=== PATIENT | male | born 1965 | race Caucasian/White ===

== ENCOUNTER 2018-03-23 01:50 | Emergency (ER) | END 2018-03-23 03:15 | disposition home or self-care (01) ==

== ENCOUNTER 2018-11-11 20:46 | Emergency (ER) | payer SELFPAY ==
[~2018-11-11] VITALS: Ht 188 cm; Wt 76.0 kg
[2018-11-11 20:58] VITALS: BP 139/62; PULSE 118; RESP 20; Ht 188 cm; Wt 76.0 kg
[2018-11-12] MEDS ORDERED: ESCI10TA PO (08:39)
[2018-11-12] MEDS ORDERED: CLON0.5T14 PO (08:39)
[2018-11-12] MEDS ORDERED: FURO40TA4 PO (08:39)
[2018-11-12] MEDS ORDERED: SPIR100T4 PO (08:39)
[2018-11-12] MEDS ORDERED: VALA500T PO (08:40)
== END 2018-11-11 21:23 | disposition left against medical advice (07) ==
LOC: E/R 20:46
DX: Z53.21 Procedure and treatment not carried out due to patient leaving prior to being seen by health care provider (principal)

== ENCOUNTER 2018-11-12 07:50 | Emergency (ER) | payer OTHER ==
[~2018-11-12] VITALS: Ht 182.9 cm; Wt 75.0 kg
[2018-11-12 07:53] VITALS: Ht 182.9 cm; Wt 75.0 kg
[2018-11-12] MEDS ORDERED: SPIR100T4 PO (08:39)
[2018-11-12] MEDS ORDERED: CLON0.5T14 PO (08:39)
[2018-11-12] MEDS ORDERED: ESCI10TA PO (08:39)
[2018-11-12] MEDS ORDERED: FURO40TA4 PO (08:39)
[2018-11-12] MEDS ORDERED: VALA500T PO (08:40)
[2018-11-12] MEDS ORDERED: LIDOCAINE 1% (MPF) 5 ML VIAL ONE (09:29)
--- NOTE | 2018-11-12 10:18 | ERD ---
ER Documentation Chief Complaint Chief Complaint here for paracenthesis HPI Patient is a 53-year-old male with a history of lymphoma who came for paracentesis. He said that he has had ascites for a few months now and is never had a paracentesis. He has no fevers. He has had discomfort in the abdomen from the swelling as well as feeling like he cannot take a deep breath. He does have a primary doctor and oncologist at [facility] and has an appointment scheduled with the oncologist for November 19. ROS All systems reviewed and are negative except as per history of present illness. Medications Home Meds Reported Medications valAcyclovir Hcl* (valACYclovir Hcl*) 500 Mg Tablet, 500 MG PO DAILY, TAB 11/12/18 Spironolactone* (Spironolactone*) 100 Mg Tablet, 100 MG PO DAILY, TAB 11/12/18 Furosemide* (Furosemide*) 40 Mg Tablet, 40 MG PO DAILY, TAB 11/12/18 Escitalopram Oxalate* (Lexapro*) 10 Mg Tablet, 10 MG PO DAILY, #30 TAB 11/12/18 Clonazepam* (Clonazepam*) 0.5 Mg Tablet, 0.5 MG PO QHS PRN for ANXIETY, TAB 11/12/18 Allergies Allergies: Coded Allergies: No Known Drug Allergies (Verified Allergy, Unknown, 11/12/18) PMhx/Soc Hx Psychiatric Problems: Yes (DEPRESSION) Hx Miscellaneous Medical Probl: Yes (LYMPHOMA) Hx Alcohol Use: Yes (occasional) Hx Substance Use: Yes (cystal meth.) Hx Tobacco Use: No Smoking Status: Former smoker FmHx Family History: diabetes Physical Exam Vitals Vital Signs Date Temp Pulse Resp B/P (MAP) Pulse Ox O2 O2 Flow FiO2 Time Delivery Rate 11/12/18 98.1 90 18 132/90 99 07:53 (104) Physical Exam Const: Cachexia Head: Atraumatic Eyes: Normal Conjunctiva ENT: Normal External Ears, Nose and Mouth. Neck: Full range of motion. No meningismus. Resp: Clear to auscultation bilaterally Cardio: Regular rate and rhythm, no murmurs Abd: Distended abdomen with positive fluid wave Skin: No petechiae or rashes Back: No midline or flank tenderness Ext: No cyanosis, or edema Neur: Awake and alert Psych: Normal Mood and Affect Result Diagram: 7/9/19 0822 7/9/19 0822 Results 24 hrs Laboratory Tests Test 11/12/18 08:22 White Blood Count 9.4 10^3/ul Red Blood Count 3.60 10^6/ul Hemoglobin 10.5 g/dl Hematocrit 32.9 % Mean Corpuscular Volume 91.4 fl Mean Corpuscular Hemoglobin 29.2 pg Mean Corpuscular Hemoglobin Concent 31.9 g/dl Red Cell Distribution Width 14.4 % Platelet Count 300 10^3/UL Mean Platelet Volume 8.5 fl Immature Granulocytes % 0.200 % Neutrophils % 26.1 % Segmented Neutrophils % (Manual) 37 % Band Neutrophils % (Manual) 2 % Lymphocytes % 67.1 % Lymphocytes % (Manual) 44 % Reactive Lymphocytes % (Manual) 1 % Monocytes % 4.9 % Monocytes % (Manual) 5 % Eosinophils % 1.2 % Basophils % 0.5 % Blast Cells % (Manual) 11.0 % Nucleated Red Blood Cells % 0.0 /100WBC Immature Granulocytes # 0.020 10^3/ul Neutrophils # 2.5 10^3/ul Neutrophils # (Manual) 3.5 10^3/ul Band Neutrophils # 0.1 10^3/ul Lymphocytes (Manual) 4.1 10^3/ul Lymphocytes # 6.3 10^3/ul Reactive Lymphocytes # 0.0 10^3/ul Monocytes # 0.5 10^3/ul Monocytes # (Manual) 0.4 10^3/ul Eosinophils # 0.1 10^3/ul Basophils # 0.1 10^3/ul Nucleated Red Blood Cells # 0.0 10^3/ul White Cell Morphology Comment @See below Platelet Estimate NORMAL Anisocytosis 1+ Red Cell Morphology Comment @See below Prothrombin Time 13.6 Sec Prothrombin Time Ratio 1.1 INR International Normalized Ratio 1.03 Activated Partial Thromboplast Time 31.0 Sec Sodium Level 142 mmol/L Potassium Level 4.7 mmol/L Chloride Level 103 mmol/L Carbon Dioxide Level 31 mmol/L Anion Gap 8 Blood Urea Nitrogen 30 mg/dl Creatinine 1.02 mg/dl Est Glomerular Filtrat Rate mL/min > 60 mL/min Glucose Level 103 mg/dl Calcium Level 9.1 mg/dl Total Bilirubin 0.4 mg/dl Direct Bilirubin 0.00 mg/dl Indirect Bilirubin 0.4 mg/dl Aspartate Amino Transf (AST/SGOT) 44 IU/L Alanine Aminotransferase (ALT/SGPT) 27 IU/L Alkaline Phosphatase 137 IU/L Total Protein 7.9 g/dl Albumin 4.0 g/dl Globulin 3.90 g/dl Albumin/Globulin Ratio 1.02 Current Medications Medications Dose Sig/Jl Start Time Status Last (Trade) Ordered Route PRN Stop Time Admin Dose Reason Admin Lidocaine 5 ml STK-MED 11/12/18 DC 11/12/18 (Xylocaine ONCE .ROUTE 09:29 11/12/18 09:30 1% (Mpf)) 09:30 Procedures/MDM Ultrasound-guided paracentesis performed by radiology. Patient is a 53-year-old male who presents with acute ascites. The studies is likely from the lymphoma that he has. The patient will have ultrasound-guided paracentesis performed by radiology. I doubt spontaneous bacterial peritonitis. General screening laboratory studies were basically normal. The patient will be discharged and was encouraged to keep his appointment scheduled with oncology on November 19 at [facility]. Departure Diagnosis: Primary Impression: Ascites Ascites type: other type Qualified Codes: R18.8 - Other ascites Additional Impression: Lymphoma Lymphoma type: unspecified type Lymphoma site: unspecified region Qualified Codes: C85.90 - Non-Hodgkin lymphoma, unspecified, unspecified site Condition: Fair Patient Instructions: Ascites Referrals: Your doctor at [facility] Additional Instructions: Call your primary care doctor TOMORROW for an appointment during the next [address] [place].Tell the principal secretary that you were referred from this facility.See the doctor sooner or return here if your condition worsens before your appointment time. Keep the appointment on November 19 with the school fundraising director/oncologist. MARY CORNELL MD Nov 12, 2018 10:18
[2018-11-12 10:23] VITALS: BP 120/76; PULSE 96; RESP 17
== END 2018-11-12 10:24 | disposition home or self-care (01) ==
LOC: E/R 07:50
DX: R18.8 Other ascites (principal); C85.90 Non-Hodgkin lymphoma, unspecified, unspecified site; Z87.891 Personal history of nicotine dependence
CPT/HCPCS: 80053; 85025; 85610; 85730; Z7502; Z7610

== ENCOUNTER 2018-11-23 17:36 | Emergency (ER) | payer SELFPAY ==
[~2018-11-23] VITALS: Ht 177.8 cm; Wt 71.7 kg
[~2018-11-23 17:36] MED LIST: CLON0.5T14 PO; ESCI10TA PO; FURO40TA4 PO; SPIR100T4 PO; VALA500T PO
[2018-11-23 17:50] VITALS: BP 119/73; PULSE 89; RESP 14; Ht 177.8 cm; Wt 71.7 kg
== END 2018-11-23 18:23 | disposition left against medical advice (07) ==
LOC: E/R 17:36
DX: Z53.21 Procedure and treatment not carried out due to patient leaving prior to being seen by health care provider (principal)

== ENCOUNTER 2018-11-24 11:07 | Emergency (ER) | payer OTHER ==
[~2018-11-24] VITALS: Wt 72.0 kg
--- NOTE | 2018-11-24 12:46 | ERD ---
ER Documentation Chief Complaint Chief Complaint Pt. is here for paracentesis HPI This is a 53-year-old male with a history of lymphoma who presents for evaluation of therapeutic paracentesis. His last paracentesis performed here was on November 12, his ascites is secondary to malignancy. He denies fever, diarrhea or shortness of breath. ROS All systems reviewed and are negative except as per history of present illness. Medications Home Meds Reported Medications valAcyclovir Hcl* (valACYclovir Hcl*) 500 Mg Tablet, 500 MG PO DAILY, TAB 11/12/18 Spironolactone* (Spironolactone*) 100 Mg Tablet, 100 MG PO DAILY, TAB 11/12/18 Furosemide* (Furosemide*) 40 Mg Tablet, 40 MG PO DAILY, TAB 11/12/18 Escitalopram Oxalate* (Lexapro*) 10 Mg Tablet, 10 MG PO DAILY, #30 TAB 11/12/18 Clonazepam* (Clonazepam*) 0.5 Mg Tablet, 0.5 MG PO QHS PRN for ANXIETY, TAB 11/12/18 Allergies Allergies: Coded Allergies: No Known Drug Allergies (Verified Allergy, Unknown, 11/12/18) PMhx/Soc Hx Psychiatric Problems: Yes (DEPRESSION) Hx Miscellaneous Medical Probl: Yes (LYMPHOMA) Hx Alcohol Use: Yes (occasional) Hx Substance Use: Yes (cystal meth.) Hx Tobacco Use: No Smoking Status: Never smoker Physical Exam Vitals Vital Signs Date Temp Pulse Resp B/P (MAP) Pulse Ox O2 O2 Flow FiO2 Time Delivery Rate 11/24/18 97.3 92 20 111/79 97 11:29 (90) Physical Exam Const: Afebrile, thin appearing, no acute distress Head: Atraumatic Eyes: Normal conjunctiva ENT: Normal external ears, nose and mouth. Neck: Resp: Normal respiratory effort Cardio: Abd: Soft, distended, no rebound or guarding, no focal tenderness Skin: Back: Ext: Neur: Awake and alert Psych: Normal mood and affect Procedures/MDM 53-year-old male with a history of ascites secondary to malignancy presents for evaluation of possible paracentesis. Patient presents requesting a therapeutic paracentesis, he has no signs or symptoms of infection, at this time I do not suspect SBP. Will plan for paracentesis performed by radiology, if successful and patient tolerated well, anticipate likely discharge. Will sign out to oncoming physician. Departure Diagnosis: Primary Impression: Abdominal pain Abdominal location: unspecified location Qualified Codes: R10.9 - Unspecified abdominal pain Additional Impression: Ascites Ascites type: other type Qualified Codes: R18.8 - Other ascites Condition: Stable Patient Instructions: TYREE Arroyo MD Nov 24, 2018 12:46
[2018-11-24] MEDS ORDERED: LIDOCAINE 1% (MPF) 5 ML VIAL ONE (15:32)
[2018-11-24 15:45] VITALS: BP 101/65; PULSE 65; RESP 17
== END 2018-11-24 15:45 | disposition home or self-care (01) ==
LOC: E/R 11:07 → FTE 15:45
DX: R10.9 Unspecified abdominal pain (principal)
CPT/HCPCS: Z7502; Z7610

== ENCOUNTER 2018-11-30 14:19 | Emergency (ER) | payer OTHER ==
[~2018-11-30] VITALS: Ht 188 cm; Wt 72.9 kg
[~2018-11-30 14:19] MED LIST changes: +TEMA15CA6 PO
[2018-11-30 14:28] VITALS: Ht 188 cm; Wt 72.9 kg
--- NOTE | 2018-11-30 15:12 | ERD ---
ER Documentation Chief Complaint Chief Complaint here for paracentesis, abdominal pain and sob, last paracentesis sunday HPI Patient with history of lymphoma that has not been treated yet. This had a PET scan several days ago. Her patient has no liver involvement. Has had recurrent ascites and low volume pleural effusions causing shortness of breath and abdominal discomfort. Denies weakness fever diarrhea. Does endorse some mild difficulty with urination. No dysuria ROS All systems reviewed and are negative except as per history of present illness. Medications Home Meds Reported Medications Temazepam* (Restoril*) 15 Mg Capsule, 15 MG PO HS PRN for INSOMNIA, CAP 11/30/18 valAcyclovir Hcl* (valACYclovir Hcl*) 500 Mg Tablet, 500 MG PO DAILY, TAB 11/12/18 Escitalopram Oxalate* (Lexapro*) 10 Mg Tablet, 10 MG PO DAILY, #30 TAB 11/12/18 Discontinued Reported Medications Spironolactone* (Spironolactone*) 100 Mg Tablet, 100 MG PO DAILY, TAB 11/12/18 Furosemide* (Furosemide*) 40 Mg Tablet, 40 MG PO DAILY, TAB 11/12/18 Clonazepam* (Clonazepam*) 0.5 Mg Tablet, 0.5 MG PO QHS PRN for ANXIETY, TAB 11/12/18 Allergies Allergies: Coded Allergies: No Known Drug Allergies (Verified Allergy, Unknown, 11/30/18) PMhx/Soc Hx Psychiatric Problems: Yes (DEPRESSION) Hx Miscellaneous Medical Probl: Yes (LYMPHOMA, Cirrhosis/ascities) Hx Alcohol Use: Yes (occasional, pt currently denies use) Hx Substance Use: Yes (cystal meth. hx; pt currently denies use) Hx Tobacco Use: No Smoking Status: Unknown if ever smoked Physical Exam Vitals Vital Signs Date Temp Pulse Resp B/P (MAP) Pulse Ox O2 O2 Flow FiO2 Time Delivery Rate 11/30/18 98.2 80 18 105/71 100 Room Air 18:00 (82) 11/30/18 98.2 75 18 105/70 100 Room Air 17:35 (82) 11/30/18 98.2 106 18 118/68 100 14:28 (85) Physical Exam Const: No acute distress Head: Atraumatic Eyes: Normal Conjunctiva ENT: Normal External Ears, Nose and Mouth. Neck: Full range of motion. No meningismus. Resp: Clear to auscultation bilaterally Cardio: Regular rate and rhythm, no murmurs Abd: Soft, non tender, mild distention distended. Normal bowel sounds Skin: No petechiae or rashes Back: No midline or flank tenderness Ext: No cyanosis, or edema Neur: Awake and alert Psych: Normal Mood and Affect Result Diagram: 11/30/18 1520 11/30/18 1520 Results 24 hrs Laboratory Tests Test 11/30/18 15:20 White Blood Count 6.6 10^3/ul Red Blood Count 3.75 10^6/ul Hemoglobin 10.7 g/dl Hematocrit 34.8 % Mean Corpuscular Volume 92.8 fl Mean Corpuscular Hemoglobin 28.5 pg Mean Corpuscular Hemoglobin Concent 30.7 g/dl Red Cell Distribution Width 14.6 % Platelet Count 254 10^3/UL Mean Platelet Volume 8.2 fl Immature Granulocytes % 0.300 % Neutrophils % % Segmented Neutrophils % (Manual) 38 % Band Neutrophils % (Manual) 3 % Lymphocytes % % Lymphocytes % (Manual) 50 % Reactive Lymphocytes % (Manual) 3 % Monocytes % % Monocytes % (Manual) 4 % Eosinophils % % Eosinophils % (Manual) 3 % Basophils % % Promyelocytes % (Manual) 1 % Nucleated Red Blood Cells % 0.0 /100WBC Immature Granulocytes # 0.020 10^3/ul Neutrophils # 10^3/ul Neutrophils # (Manual) 2.5 10^3/ul Band Neutrophils # 0.1 10^3/ul Lymphocytes (Manual) 3.3 10^3/ul Lymphocytes # 10^3/ul Reactive Lymphocytes # 0.1 10^3/ul Monocytes # 10^3/ul Monocytes # (Manual) 0.2 10^3/ul Eosinophils # 10^3/ul Basophils # 10^3/ul Promyelocytes # 0.0 10^3/ul Nucleated Red Blood Cells # 10^3/ul Platelet Estimate NORMAL Polychromasia 3+ Anisocytosis 1+ Macrocytosis 1+ Prothrombin Time 13.6 Sec Prothrombin Time Ratio 1.1 INR International Normalized Ratio 1.03 Activated Partial Thromboplast Time 30.9 Sec Sodium Level 141 mmol/L Potassium Level 4.2 mmol/L Chloride Level 108 mmol/L Carbon Dioxide Level 29 mmol/L Anion Gap 4 Blood Urea Nitrogen 18 mg/dl Creatinine 0.92 mg/dl Est Glomerular Filtrat Rate mL/min > 60 mL/min Glucose Level 81 mg/dl Calcium Level 8.3 mg/dl Total Bilirubin 0.4 mg/dl Direct Bilirubin 0.00 mg/dl Indirect Bilirubin 0.4 mg/dl Aspartate Amino Transf (AST/SGOT) 36 IU/L Alanine Aminotransferase (ALT/SGPT) 20 IU/L Alkaline Phosphatase 117 IU/L Total Protein 6.7 g/dl Albumin 3.4 g/dl Globulin 3.30 g/dl Albumin/Globulin Ratio 1.03 Current Medications Medications Dose Sig/Jl Start Time Status Last (Trade) Ordered Route PRN Stop Time Admin Dose Reason Admin Lidocaine 5 ml STK-MED 11/30/18 DC 11/30/18 (Xylocaine ONCE .ROUTE 17:39 17:41 1% (Mpf)) 11/30/18 17:40 Procedures/MDM Limited Chest/Thoracic/Pleural Ultrasound performed by me: Indication: Chest pain/Shortness of breath, Rule out pneumothorax Interpretation: No pneumothorax, no pulmonary edema mild pleural effusion left lung Images archived in the medical record. Limited Abdominal Ultrasound performed by me: Indication: Abdominal distention Findings: free fluid present in the hepatorenal, splenorenal or pericystic space. Images archived in the medical record. Images archived in the medical record. Patient here for abdominal distention and shortness of breath likely secondary to hypervolemia chest x-ray and abdominal ultrasound all indicate patient is hypervolemic. Satting well with no evidence of infection. Unfortunately even though ascitic fluid was ordered to be tested it was not sent after collection. Low suspicion for infection given patient is asymptomatic and feeling better after paracentesis. Will discharge patient strict return precautions. Departure Diagnosis: Primary Impression: Hypervolemia Hypervolemia type: unspecified Qualified Codes: E87.70 - Fluid overload, unspecified Condition: Stable DANI ROUSSEAU MD Nov 30, 2018 15:11
[2018-11-30] MEDS ORDERED: LIDOCAINE 1% (MPF) 5 ML VIAL ONE (17:39)
[2018-11-30 18:00] VITALS: BP 105/71; PULSE 80; RESP 18
== END 2018-11-30 19:08 | disposition home or self-care (01) ==
LOC: E/R 14:19
DX: E87.70 Fluid overload, unspecified (principal); Z85.72 Personal history of non-Hodgkin lymphomas
CPT/HCPCS: 49083; 71045; 80053; 85025; 85610; 85730; Z7502; Z7610

== ENCOUNTER 2018-12-12 07:33 | Emergency (ER) | payer OTHER ==
[~2018-12-12] VITALS: Ht 182.9 cm; Wt 77.7 kg
[~2018-12-12 07:33] MED LIST changes: -CLON0.5T14 PO; -FURO40TA4 PO; -SPIR100T4 PO
[2018-12-12 07:42] VITALS: Ht 182.9 cm; Wt 77.7 kg
--- NOTE | 2018-12-12 08:55 | ERD ---
ER Documentation Chief Complaint Chief Complaint PT CAME FOR PARACENTESIS; C/O FLUID OVERLOAD. 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 He reports feeling of fullness to her abdomen. It is been more firm over time since his last paracentesis 1 to 2 weeks ago. He reports mild shortness of breath associated with this as well. He otherwise does not endorse any focal abdominal tenderness. He does not endorse any nausea or vomiting. He does not endorse any constipation or diarrhea. He does not endorse any dysuria or hematuria or urgency or frequency. He does not endorse any black or bloody or tarry stools. He does not endorse any alleviating or exacerbating factors. The patient denies feeling sick recently. The patient denies fever or chills. The patient has had no headache or vision changes. The patient does not endorse neck or back pain. The patient denies lightheadedness or dizziness. The patient has had no chest pain or trouble breathing. The patient has had no focal deficits. The patient has had no weakness or numbness or tingling to the face or extremities. ROS All systems reviewed and are negative except as per history of present illness. Medications Home Meds Reported Medications Temazepam* (Restoril*) 15 Mg Capsule, 15 MG PO HS PRN for INSOMNIA, CAP 11/30/18 valAcyclovir Hcl* (valACYclovir Hcl*) 500 Mg Tablet, 500 MG PO DAILY, TAB 11/12/18 Escitalopram Oxalate* (Lexapro*) 10 Mg Tablet, 10 MG PO DAILY, #30 TAB 11/12/18 Allergies Allergies: Coded Allergies: No Known Drug Allergies (Unverified Allergy, Unknown, 12/12/18) PMhx/Soc Hx Psychiatric Problems: Yes (DEPRESSION) Hx Miscellaneous Medical Probl: Yes (LYMPHOMA, Cirrhosis/ascities) Hx Alcohol Use: Yes (occasional, pt currently denies use) Hx Substance Use: Yes (cystal meth. hx; pt currently denies use) Hx Tobacco Use: No FmHx Family History: No diabetes Physical Exam Vitals Vital Signs Date Temp Pulse Resp B/P (MAP) Pulse Ox O2 O2 Flow FiO2 Time Delivery Rate 12/12/18 97.7 85 18 114/69 99 07:42 (84) Physical Exam Const: No acute distress Head: Atraumatic Eyes: Normal Conjunctiva ENT: Normal External Ears, Nose and Mouth. Neck: Full range of motion. No meningismus. Resp: Clear to auscultation bilaterally Cardio: Regular rate and rhythm, no murmurs Abd: Soft, non tender. Abdominal distention with ascites. Normal bowel sounds Skin: No petechiae or rashes Back: No midline or flank tenderness Ext: No cyanosis, or edema Neur: Awake and alert Psych: Normal Mood and Affect Results 24 hrs Current Medications Medications Dose Sig/Jl Start Time Status Last (Trade) Ordered Route PRN Stop Time Admin Dose Reason Admin Lidocaine 5 ml STK-MED 12/12/18 DC 12/12/18 (Xylocaine ONCE .ROUTE 09:28 12/12/18 09:30 1% (Mpf)) 09:29 Procedures/MDM MDM The patient's presentation warrants further investigation. Previous medical records, if available, were reviewed. The patient presents for paracentesis. The patient has known abdominal ascites requiring past paracentesis. The patient is in no acute distress. The patient's abdomen is distended but nontender. The patient is well-appearing, afebrile with normal vital signs. The patient's abdomen is not peritoneal headache. I do not suspect spontaneous bacterial peritonitis. The patient's INR and platelet count are unremarkable, checked today or within the last 30 days. I do not feel that testing of ascitic fluid is warranted today. I do feel that the patient's presentation warrants paracentesis. The patient does not have clinical symptoms concerning for mesenteric ischemia or ischemic colitis. I do not suspect cholecystitis or biliary colic. I have low suspicion for gastritis, PUD or GERD. I have low suspicion for pancreatitis. I do not suspect appendicitis. The patient does not endorse any urinary symptoms. I have decreased suspicion for cystitis. The patient does not report any GI bleeding. I have low suspicion for diverticulosis or diverticulitis. The patient does not have any flank tenderness. The patient does not have gross hematuria. I have decreased suspicion for nephrolithiasis or renal colic. The patient does not have any palpable pulsatile mass or severe abdominal pain radiating to the back. I have low suspicion for aortic aneurysm, dissection or rupture. TREATMENT/DISPOSITION A paracentesis was completed by interventional radiology. 5 L or less were removed from the abdomen without complication. The patient remained hemodynamically stable in the emergency department. DISCHARGE Upon reevaluation of the patient, symptoms have improved. No emergent diagnoses were identified. At this time, I feel that the patient stable for discharge. The patient was instructed to follow-up with a primary care physician in 1-3 days. The patient will be given strict precautions with which to return to the emergency department. Prescriptions: None The patient's blood pressure was elevated at greater than 120/80 while in the emergency department. The patient was otherwise stable with no evidence of hypertensive urgency or emergency. The patient does not require admission for blood pressure control. I have discussed with the patient the risks of hypertension. I have instructed the patient to return to the ER for any new or worsening symptoms including chest pain, shortness of breath, headache, blurred vision, confusion, nausea, vomiting or LOC. I have advised the patient to follow up with the primary care physician for outpatient monitoring and treatment for hypertension in 1-3 days. DISCLAIMER Inadvertent spelling and grammatical errors are likely due to EHR/dictation software use and do not reflect on the overall quality of patient care. Note that the electronic time recorded on this note does not necessarily reflect the actual time of the patient encounter. Departure Diagnosis: Primary Impression: Ascites Ascites type: malignant Qualified Codes: R18.0 - Malignant ascites Additional Impressions: Status post abdominal paracentesis Abdominal distention Follicular lymphoma Follicular lymphoma type: unspecified follicular type Lymphoma site: unspecified region Qualified Codes: C82.90 - Follicular lymphoma, unspecified, unspecified site Condition: Stable Patient Instructions: Ascites, Paracentesis Additional Instructions: Thank you for for coming to [facility] for your care today. Please ask your nurse or provider if you have questions about your care today and do not leave until all your questions have been answered. Please use any medications given as directed and follow-up with your doctor (or the doctor you were referred to) in the next 1-3 days. If you do not have a primary care doctor you may follow up at the [facility] or [facility] (listed below). You may also use motrin and tylenol as needed for fever and/or pain unless instructed otherwise by your provider or nurse. Indications for more urgent follow-up have been discussed, but you may return to the Emergency Department at ANY time for any worrisome or worsening symptoms. If you have abdominal pain, please know that no test or exam you received is perfect and you should follow up within 8 hours for continued pain. If you had any imaging studies today, such as an X-Ray or CT Scan, these studies will be reviewed later by a radiologist. You will be called if there are impo rtant findings that were not identified today, so make sure the contact information you provided at registration is correct. If you received any narcotic pain control medicine today, such as Vicodin, Morphine or Dilaudid, your coordination and judgment may be affected for a number of hours. Please do not drive or operate heavy machinery, and you may want someone to assist you at home. If you were given a prescription for narcotic medication, be aware that it is very addictive- use sparingly and only if necessary. PLEASE SEEK FURTHER EVALUATION AND MANAGEMENT AT YOUR DOCTORS OFFICE WITHIN THE NEXT 1-3 DAYS. IT IS YOUR RESPONSIBILITY TO MAKE AN APPOINTMENT FOR FOLOW-UP CARE. IF YOU HAVE A PRIMARY DOCTOR, PLEASE CALL THEIR OFFICE TO SCHEDULE AN APPOINTMENT FOR FOLLOW UP. IF YOU DO NOT HAVE A PRIMARY DOCTOR YOU CAN CALL OUR PHYSICIAN REFERRAL HOTLINE AT IF YOU CAN NOT AFFORD TO SEE A PHYSICIAN YOU CAN CHOSE FROM THE FOLLOWING [facility] CLINICS: [facility] [address] [facility] [address] [facility] [address] [facility] [address] [facility] [address] [facility]. [facility]. [address] LIDA MONK MD Dec 12, 2018 08:55
[2018-12-12] MEDS ORDERED: LIDOCAINE 1% (MPF) 5 ML VIAL ONE (09:28)
[2018-12-12 09:37] VITALS: PULSE 87; RESP 18
[2018-12-12 09:45] VITALS: BP 112/63
== END 2018-12-12 09:48 | disposition home or self-care (01) ==
LOC: E/R 07:33
DX: C82.90 Follicular lymphoma, unspecified, unspecified site (principal); R18.0 Malignant ascites; Z48.817 Encounter for surgical aftercare following surgery on the skin and subcutaneous tissue
CPT/HCPCS: 49083; Z7502; Z7610

== ENCOUNTER 2018-12-17 07:36 | Emergency (ER) | payer OTHER ==
[~2018-12-17] VITALS: Ht 188 cm; Wt 74.2 kg
[2018-12-17 07:45] VITALS: Ht 188 cm; Wt 74.2 kg
--- NOTE | 2018-12-17 08:39 | ERD ---
ER Documentation Chief Complaint Chief Complaint ABD SWELLING, PT HERE FOR PARACENTESIS HPI Patient is a 53-year-old male with cirrhosis who presents with abdominal distention. He said that he needs a paracentesis. He has no fevers. He has a history of paracentesis in the past. He said that his last paracentesis was last . Upon review of old medical records the patient has multiple visits to the ER for similar complaints. His primary doctor is at [facility]. ROS All systems reviewed and are negative except as per history of present illness. Medications Home Meds Reported Medications Temazepam* (Restoril*) 15 Mg Capsule, 15 MG PO HS PRN for INSOMNIA, CAP 11/30/18 valAcyclovir Hcl* (valACYclovir Hcl*) 500 Mg Tablet, 500 MG PO DAILY, TAB 11/12/18 Escitalopram Oxalate* (Lexapro*) 10 Mg Tablet, 10 MG PO DAILY, #30 TAB 11/12/18 Allergies Allergies: Coded Allergies: No Known Drug Allergies (Unverified Allergy, Unknown, 12/17/18) PMhx/Soc History of Surgery: No Anesthesia Reaction: No Hx Neurological Disorder: No Hx Respiratory Disorders: No Hx Cardiac Disorders: No Hx Psychiatric Problems: Yes (DEPRESSION) Hx Miscellaneous Medical Probl: Yes (LYMPHOMA, Cirrhosis/ascities) Hx Alcohol Use: Yes (occasional, pt currently denies use) Hx Substance Use: Yes (cystal meth. 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 Neck: Full range of motion. No meningismus. Resp: Clear to auscultation bilaterally Cardio: Regular rate and rhythm, no murmurs Abd: Abdominal distention with positive fluid wave Skin: No petechiae or rashes Back: No midline or flank tenderness Ext: No cyanosis, or edema Neur: Awake and alert Psych: Normal Mood and Affect Procedures/MDM Ultrasound-guided paracentesis performed by radiology. Patient is a 53-year-old male who presents with ascites. At this point I doubt spontaneous bacterial peritonitis. The patient will have a therapeutic paracentesis by interventional radiology and then will be discharged. He can return for any worsening symptoms. Laboratory studies were done within the past month and he does not need repeat laboratory studies at this time. Departure Diagnosis: Primary Impression: Ascites Ascites type: other type Qualified Codes: R18.8 - Other ascites Condition: Fair Patient Instructions: Ascites Additional Instructions: Call your primary care doctor TOMORROW for an appointment during the next 1 WEEK.Tell the racing secretary that you were referred from this facility.See the doctor sooner or return here if your condition worsens before your appointment time. MARY CORNELL MD Dec 17, 2018 08:39
[2018-12-17] MEDS ORDERED: LIDOCAINE 1% (MPF) 5 ML VIAL ONE (09:57)
[2018-12-17 10:01] VITALS: BP 110/75; PULSE 94; RESP 17
== END 2018-12-17 10:04 | disposition home or self-care (01) ==
LOC: E/R 07:36
DX: R18.8 Other ascites (principal); Z85.71 Personal history of Hodgkin lymphoma
CPT/HCPCS: 49083; Z7502; Z7610

== ENCOUNTER 2018-12-17 13:15 | Emergency (ER) | payer OTHER ==
[~2018-12-17] VITALS: Ht 188 cm; Wt 69.7 kg
[2018-12-17 13:20] VITALS: BP 145/65; PULSE 118; RESP 17; Ht 188 cm; Wt 69.7 kg
--- NOTE | 2018-12-17 13:32 | ERD ---
ER Documentation Chief Complaint Chief Complaint LEAKING ON ABD AREA S/P PARACENTESIS HPI 53-year-old male presents with leaking right paracentesis site. He had an uncomplicated paracentesis this morning less than 5 L. He has a history of ascites due to follicular lymphoma. He is on chemotherapy. He denies any f kandace, vomiting, shortness of breath. ROS All systems reviewed and are negative except as per history of present illness. Medications Home Meds Reported Medications Temazepam* (Restoril*) 15 Mg Capsule, 15 MG PO HS PRN for INSOMNIA, CAP 11/30/18 valAcyclovir Hcl* (valACYclovir Hcl*) 500 Mg Tablet, 500 MG PO DAILY, TAB 11/12/18 Escitalopram Oxalate* (Lexapro*) 10 Mg Tablet, 10 MG PO DAILY, #30 TAB 11/12/18 Allergies Allergies: Coded Allergies: No Known Drug Allergies (Unverified Allergy, Unknown, 12/17/18) PMhx/Soc History of Surgery: No Anesthesia Reaction: No Hx Neurological Disorder: No Hx Respiratory Disorders: No Hx Cardiac Disorders: No Hx Psychiatric Problems: Yes (DEPRESSION) Hx Miscellaneous Medical Probl: Yes (LYMPHOMA, Cirrhosis/ascities) Hx Alcohol Use: Yes (occasional, pt currently denies use) Hx Substance Use: Yes (cystal meth. 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 Neck: Full range of motion. No meningismus. Resp: Clear to auscultation bilaterally Cardio: Regular rate and rhythm, no murmurs Abd: Soft, non tender, non distended. Normal bowel sounds. Scant leaking right lower paracentesis site. Resolved with lying down. No erythema, tenderness. Skin: No petechiae or rashes Back: No midline or flank tenderness Ext: No cyanosis, or edema Neur: Awake and alert Psych: Normal Mood and Affect Procedures/MDM Patient presents with what appears to be a slow leak from a paracentesis I performed this morning. He has no signs of acute abdomen, peritoneal signs, SBP, sepsis, additional complications. Paracentesis wound was cleansed with alcohol. Dermabond was applied. Patient was observed until there is no visualized leaking from site. Wound was redressed. Patient be discharged home with primary care follow-up and return precautions for recurrent leaking, erythema, bleeding, fevers, shortness of breath, new or worsening symptoms. Departure Diagnosis: Primary Impression: S/P abdominal paracentesis Condition: Stable Patient Instructions: Ascites Referrals: [facility] ([facility]) Additional Instructions: Follow-up with primary doctor as scheduled. Recheck for new or worsening symptoms-redness, fevers. ANJUM BLACKWOOD MD Dec 17, 2018 13:32
== END 2018-12-17 13:32 | disposition home or self-care (01) ==
LOC: E/R 13:15
DX: T81.89XA Other complications of procedures, not elsewhere classified, initial encounter (principal); Y73.2 Prosthetic and other implants, materials and accessory gastroenterology and urology devices associated with adverse incidents; Y84.4 Aspiration of fluid as the cause of abnormal reaction of the patient, or of later complication, without mention of misadventure at the time of the procedure
CPT/HCPCS: 99282

== ENCOUNTER 2018-12-23 08:35 | Emergency (ER) | payer OTHER ==
[~2018-12-23] VITALS: Ht 188 cm; Wt 74.8 kg
[2018-12-23 08:41] VITALS: Ht 188 cm; Wt 74.8 kg
[2018-12-23 10:34] VITALS: BP 116/72; PULSE 96; RESP 18
== END 2018-12-23 10:35 | disposition home or self-care (01) ==
LOC: E/R 08:35
DX: K74.60 Unspecified cirrhosis of liver (principal); Z85.72 Personal history of non-Hodgkin lymphomas; Z87.891 Personal history of nicotine dependence
CPT/HCPCS: 99282

== ENCOUNTER 2018-12-25 07:12 | Emergency (ER) | payer OTHER ==
[~2018-12-25] VITALS: Ht 188 cm; Wt 75.9 kg
[2018-12-25 07:17] VITALS: BP 113/63; PULSE 84; RESP 18; Ht 188 cm; Wt 75.9 kg
[2018-12-25] MEDS ORDERED: LIDOCAINE 1% (MPF) 5 ML VIAL ONE (08:48)
== END 2018-12-25 11:20 | disposition home or self-care (01) ==
LOC: E/R 07:12
DX: R18.8 Other ascites (principal); R06.02 Shortness of breath; Z98.890 Other specified postprocedural states; Z85.72 Personal history of non-Hodgkin lymphomas; Z87.891 Personal history of nicotine dependence
CPT/HCPCS: 49083; 80053; 82945; 83615; 84157; 85025; 85610; 85730; 87070; 87102; 87116; 89051; Z7502; Z7610

== ENCOUNTER 2019-01-08 10:59 | Emergency (ER) | payer OTHER ==
[~2019-01-08] VITALS: Ht 185.4 cm; Wt 77.5 kg
[2019-01-08 11:07] VITALS: Ht 185.4 cm; Wt 77.5 kg
[2019-01-08] MEDS ORDERED: LIDOCAINE 1% (MDV) 20 ML INJ ONE (12:28)
[2019-01-08] MEDS ORDERED: LIDOCAINE 1% (MPF) 5 ML VIAL ONE (12:43)
[2019-01-08 13:17] VITALS: BP 113/65; PULSE 70; RESP 17
== END 2019-01-08 13:18 | disposition home or self-care (01) ==
LOC: E/R 10:59
DX: R18.8 Other ascites (principal); Z85.72 Personal history of non-Hodgkin lymphomas
CPT/HCPCS: 49083; Z7502; Z7610